=== PATIENT | female | born 1975 | race Two or more races ===

== ENCOUNTER 2025-04-08 11:44 | Emergency (ER) | payer OTHER ==
[~2025-04-08] VITALS: Ht 157.5 cm; Wt 88.5 kg
[2025-04-08] MEDS ORDERED: SYNTHROID112 MCG PO (12:58)
[2025-04-08] MEDS ORDERED: COZAAR50 MG PO (12:58)
[2025-04-08] MEDS ORDERED: KETO10TA2 PO (12:59)
[2025-04-08] MEDS ORDERED: NORFLEX100MG PO (12:59)
[2025-04-08] MEDS ORDERED: [UNRECOGNIZED DRUG - OTHER] PO (13:00)
[2025-04-08] MEDS ORDERED: DEXAMETHASONE SODIUM PHOSPHATE 4 MG/ML VIAL ONE (14:12)
[2025-04-08] MEDS ORDERED: KETOROLAC TROMETHAMINE 30 MG VIAL ONE (14:12)
[2025-04-08] MEDS ORDERED: DEXAMETHASONE SODIUM PHOSPHATE 4 MG/ML VIAL IV STA (14:13)
[2025-04-08] MEDS ORDERED: KETOROLAC TROMETHAMINE 30 MG VIAL IV STA (14:13)
== END 2025-04-08 16:06 | disposition home or self-care (01) ==
LOC: ER 12:15
DX: M25.511 Pain in right shoulder (principal); I10 Essential (primary) hypertension